=== PATIENT | female | born 1990 | race Caucasian/White ===

== ENCOUNTER 2020-02-27 09:46 | Emergency (ER) | payer BC, OTHER ==
--- OUTSIDE RECORDS SUMMARY | 2020-02-27 09:48 | XMS REPORT | Clinical Summary ---
:1990 Author Organization [facility] Address [address] [place] [address] Care Team Providers Name Role Phone Nam Jensen MD Primary Care Provider Allergies Active Allergy Reactions Severity Noted Date Comments Sulfa (Sulfonamide Antibiotics) Hives 9 Medications Medication Sig Dispensed Refills Start Date End Date Status Take 1 tablet by 0 Act zainab vit,[id number] mouth daily. 29 mg iron- 1 mg tablet per tablet Active Problems Problem Noted Date Abdominal pain during in third trimester 01/2019 Previous section 09/23/2018 29 weeks gestation of 09/23/2018 Social History Tobacco Use Types Packs/Day Years Used Date Former Smoker Smokeless Tobacco: Never Used Alcohol Use Drinks/Week oz/Week Comments Not Currently Sex Assigned at Date Recorded Not on file Obstetrics History Grav Para Term Pre Abrt (TAB) (SAB) (Ect) Mult Lvng Comments 3 2 1 2 Date Outcome GA Total Labor/2nd/3rd Weight Sex Delivery Anes PTL Kena A 1 A5 Name Clin Labor 05/28 Term 39w 10 lb 7 M CS-LTranv Epidu N [place] /2012 0d oz ral ng Complications: Dysfunctional Labor, Sánchez sposition of the great arteries, Aortic anomaly 01/12/2016 Para 38w0d 7 lb F CS-LTranv Spinal N Living Complications: None Last Filed Vital Signs Not on file Plan of Treatment Not on file Results Not on fileafter 02/26/2019 Advance Directives For more information, please contact: [phone] Type Date Recorded 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
--- OUTSIDE RECORDS SUMMARY | 2020-02-27 09:48 | XMS REPORT | Continuity of Care Document ---
:1990 Author Organization [facility] t Address [address] [place] [address] Care Team Providers Name Role Phone Camila STEIN Primary Care Physician Amina STEIN M Attending Clinician Jere CHANGP, R Attending Clinician Doctor Unassigned, Name Attending Clinician Unavailable Warren WHCNP, O Attending Clinician Theodore OSHEA Attending Clinician Unavailable Amina STEIN, M Admitting Clinician Problems Condition Condition Condition Status Onset Resolution Last Treating Co mments Source Name Details Category Date Date Treatment Clinician Date Abdominal Abdominal Disease Active Sharan ston pain pain 8-12 Methodi during during 00:00: st 00 in third in third trimester trimester Previous Previous Disease Active [place] on 8-12 Method i section section 00:00: st 00 29 weeks 29 weeks Disease Active [place] on gestation gestation 8-12 Meth krystal of of 00:00: st 00 Allergies, Adverse Reactions, Alerts Allergy Allergy Status Severity Reaction(s) Onset Inactive Treating Comm ents Source Name Type Date Date Clinician Sulfa Propensi Active Hives [place] (Sulfona ty to 8-11 Methodi mide adverse 00:00: st Antibiot reaction 00 ics) s to drug Social History Social Habit Start Date Stop Date Quantity Comments Source Sex Assigned At [place] M ethodist Tobacco use and 2019-03-02 2019-03-02 Never used Dustin Abdi ethodist exposure 00:00:00 00:00:00 Alcohol intake 2019-03-02 2019-03-02 Ex-drinker Dustin Spaulding thodist 00:00:00 00:00:00 (finding) Smoking Status Start Date Stop Date Source Former smoker 2019-03-02 00:00:00 2019-03-02 00:00:00 Dustin Hindu Medications Ordered Filled Start Stop Current Ordering Indication Dosage Frequency Signature Comments Components Source Medication Medication Date Date Medication? Clinician (SIG) Name Name Yes 1{tbl} QD Take 1 [place] on vit,calc76- 8-12 tablet by Met gil iron-folic 01:23: mouth st 29 mg iron- 52 daily. 1 mg tablet per tablet Procedures This patient has no known procedures. Encounters Start End Encounter Admission Attending Care Care Encounter Source Date/Time Date/Time Type Type Clinicians Facility Department ID 2018-12-04 2018-12-04 1.2.840.1 [id number] 00:00:00 00:00:00 Encounter [id number] 2018-10-28 2018-10-31 [facility] [id number] 17:03:00 11:30:00 Encounter Nhan [facility]13.10 [facility] 4.2.7.2.686 [id number] 2018-10-28 2018-10-28 Telephone Jere [facility] [id number] 00:00:00 00:00:00 Jyotsna Figueredo WATER SUPPLY TECHNICIAN [id number] [facility] 4.2.7.2.686 MATERNAL [id number] & CHILD [address] [place] [address] 2018-10-28 2018-10-28 Orders Doctor SIDRA [id number] 00:00:00 00:00:00 Only Unassigned, VERONICA 350.1.13.10 [place] [facility] 4.2.7.2.686 [id number] 2018-10-23 2018-10-[address] [facility] [id number] 11:23:36 12:13:13 Mellerie O WATER SUPPLY TECHNICIAN [id number] Visit [facility] [id number] MATERNAL [id number] & CHILD [address] [place] [address] 2018-10-23 2018-10-23 Orders Doctor SIDRA [id number] 00:00:00 00:00:00 Only Unassigned, VERONICA [id number] [place] [id number] 2018-09-22 2018-09-22 Nurse Kasey Jaimes [id number] 00:00:00 00:00:00 Triage VERONICA [id number] [place] [id number] Results This patient has no known results.
[2020-02-27] MEDS ORDERED: dexAMETHasone 10 MG/ML VIAL ONE (10:40)
[2020-02-27 11:25] LABS: SARS-COV-2 RT PCR POSITIVE (NEGATIVE)
[2020-02-27] MEDS ORDERED: ACETAMINOPHEN 325 MG TABLET ONE (12:01)
--- NOTE | 2020-02-27 12:21 | RAD REPORT ---
EXAM DESCRIPTION: Ramon Single View02/27/2020 11:23 am CLINICAL HISTORY: Chest pain COMPARISON: 2013 FINDINGS: Lung bases are hazy. Upper lobes are clear. Heart is normal size IMPRESSION: Lung bases are hazy. It is uncertain whether this is secondary to overlying soft tissue or infiltrate. Either PA and lateral chest series or CT chest recommended for further evaluation
--- NOTE | 2020-02-27 13:11 | ER ---
Nurse's Notes [facility] Name: Joyce León Age: 29 yrs Sex: Female : 1990 Arrival Date: 02/27/2020 Time: 09:47 Bed 25 Private MD: Diagnosis: Coronavirus infection, unspecified Presentation: 02/26 10:09 Chief complaint: Patient states: Covid symptoms for 10 days. Boyfriend was diagnosed ll1 positive. Fever up to 100.3 at home. Came in for SOB with exertion. Coronavirus screen: Client denies travel out of the [place] in the last 14 days. chills, congestion, cough unrelated to allergies, difficulty breathing, fatigue, fever, headache, muscle pain, nausea, shaking with chills, shortness of breath, loss of taste or smell, Client presents with at least one sign or symptom that may indicate coronavirus-19. Standard/surgical mask placed on the client. Ebola Screen: Patient denies travel to an Ebola-affected area in the 21 days before illness onset. Initial Sepsis Screen: Does the patient meet any 2 criteria? HR > 90 bpm. No. Patient's initial sepsis screen is negative. Does the patient have a suspected source of infection? Yes: Productive cough/pneumonia. Risk Assessment: Do you want to hurt yourself or someone else? Patient reports no desire to harm self or others. Onset of symptoms was February 18, 2020. 10:09 Method Of Arrival: Ambulatory ll1 10:09 Acuity: WILBER 3 ll1 Historical: - Allergies: 10:09 Sulfa (Sulfonamide Antibiotics); ll1 - PSHx: 10:09 ; tubes tied; ll1 - Immunization history:: Flu vaccine is not up to date. - Social history:: Smoking status: Patient denies any tobacco usage or history of. Screenin:25 Abuse screen: Denies threats or abuse. Nutritional screening: No deficits noted. em Tuberculosis screening: No symptoms or risk factors identified. Fall Risk None identified. Assessment: 10:25 General: Appears in no apparent distress. uncomfortable, Behavior is calm, cooperative, em appropriate for age, Denies fever. Pain: Complains of pain in chest Pain currently is 5 out of 10 on a pain scale. Neuro: Level of Consciousness is awake, alert, obeys commands, Oriented to person, place, time, situation, Appropriate for age. Cardiovascular: Capillary refill Rhythm is regular. Respiratory: Reports shortness of breath on exertion cough that is non-productive, pain with cough Airway is patent Respiratory effort is even, unlabored, Respiratory pattern is regular, symmetrical, Breath sounds are diminished bilaterally. GI: Reports nausea. Derm: Skin is intact, is healthy with good turgor, Skin is pink, warm \T\ dry. Musculoskeletal: Capillary refill < 3 seconds, Range of motion: intact in all extremities. 11:36 Reassessment: Patient appears in no apparent distress at this time. Patient and/or em family updated on plan of care and expected duration. Pain level reassessed. Patient is alert, oriented x 3, equal unlabored respirations, skin warm/dry/pink. 12:20 Reassessment: Patient appears in no apparent distress at this time. Patient and/or em family updated on plan of care and expected duration. Pain level reassessed. Patient is alert, oriented x 3, equal unlabored respirations, skin warm/dry/pink. Vital Signs: 10:09 BP 130 / 76; Pulse 120; Resp 18; Temp 99.1; Pulse Ox 97% on R/A; Weight 130.63 kg; ll1 Height 5 ft. 6 in. (167.64 cm); Pain 5/10; 11:37 BP 118 / 82; Pulse 110; Resp 18; Pulse Ox 96% on R/A; em 12:20 BP 106 / 60; Pulse 85; Resp 18; Pulse Ox 97% on R/A; em 10:09 Body Mass Index 46.48 (130.63 kg, 167.64 cm) ll1 ED Course: 09:47 Patient arrived in ED. rg4 09:48 William Alberto PA is PHCP. [facility] 09:48 Jewel Bruno MD is Attending Physician. jmm 10:08 Arm band placed on Patient placed in an exam room, on a stretcher. ll1 10:12 Triage completed. ll1 10:19 Luis Enrique Floyd, DORIE is Primary Nurse. em 10:25 Patient has correct armband on for positive identification. Bed in low position. Call em light in reach. Adult w/ patient. 11:23 Chest Single View XRAY In Process Unspecified. EDMS 13:20 No provider procedures requiring assistance completed. Patient did not have IV access em during this emergency room visit. Administered Medications: 10:31 Drug: Decadron 10 mg Route: IM; Site: left deltoid; em 11:51 Follow up: Response: No adverse reaction em 11:45 Drug: Tylenol 650 mg Route: PO; em 13:22 Follow up: Response: No adverse reaction em 13:17 Not Given (Physician Discretion): Ivermectin 18 mg PO once em Outcome: 13:10 Discharge ordered by MD. verduzco 13:20 Discharged to home ambulatory. em 13:20 Condition: stable 13:20 Discharge instructions given to patient, Instructed on discharge instructions, follow up and referral plans. medication usage, Demonstrated understanding of instructions, follow-up care, medications, Prescriptions given X 2. 13:22 Patient left the ED. em Signatures: Dispatcher [employer] William Grigsby PA PA jmm Munoz, Edgar RN Kassie Dale rg4 Cj Forman RN RN ll1
--- NOTE | 2020-02-27 13:11 | EDPHYS ---
Physician Documentation [facility] Name: Joyce León Age: 29 yrs Sex: Female : 1990 Arrival Date: 02/27/2020 Time: 09:47 Bed 25 Private MD: ED Physician Jewel Bruno HPI: 02/26 10:33 This 29 yrs old Female presents to ER via Ambulatory with complaints of jmm Cough, Breathing Difficulty, Covid+. 10:33 Onset: The symptoms/episode began/occurred just prior to arrival, 10 day(s) ago. jmm Modifying factors: The symptoms are alleviated by nothing, the symptoms are aggravated by nothing. Associated signs and symptoms: Pertinent positives: fever, sore throat. This is a 29 year old female with no chronic medical conditions that presents to the ED with complaints of cough, dypnea on exertion worsening over the past 10 days. Boyfriend recently diagnosed with covid. . Historical: - Allergies: 10:09 Sulfa (Sulfonamide Antibiotics); ll1 - PSHx: 10:09 ; tubes tied; ll1 - Immunization history:: Flu vaccine is not up to date. - Social history:: Smoking status: Patient denies any tobacco usage or history of. ROS: 10:33 Constitutional: Positive for body aches, fever. jmm 10:33 Respiratory: Positive for cough, shortness of breath. 10:33 All other systems are negative. Exam: 10:33 Constitutional: This is a well developed, well nourished patient who is awake, alert, jmm and in no acute distress. Head/Face: atraumatic. Eyes: EOMI, no conjunctival erythema appreciated ENT: Moist Mucus Membranes Neck: Trachea midline, Supple Chest/axilla: Normal chest wall appearance and motion. Cardiovascular: Regular rate and rhythm. No edema appreciated Respiratory: Normal respirations, no respiratory distress appreciated Abdomen/GI: Non distended, soft Back: Normal ROM Skin: General appearance color normal MS/ Extremity: Moves all extremities, no obvious deformities appreciated, no edema noted to the lower extremities Neuro: Awake and alert, normal gait Psych: Behavior is normal, Mood is normal, Patient is cooperative and pleasant Vital Signs: 10:09 BP 130 / 76; Pulse 120; Resp 18; Temp 99.1; Pulse Ox 97% on R/A; Weight 130.63 kg; ll1 Height 5 ft. 6 in. (167.64 cm); Pain 5/10; 11:37 BP 118 / 82; Pulse 110; Resp 18; Pulse Ox 96% on R/A; em 12:20 BP 106 / 60; Pulse 85; Resp 18; Pulse Ox 97% on R/A; em 10:09 Body Mass Index 46.48 (130.63 kg, 167.64 cm) ll1 MDM: 10:15 [facility] 13[facility]08 Data reviewed: vital signs, nurses notes. Counseling: I had a detailed discussion with ezra the patient and/or guardian regarding: the historical points, exam findings, and any diagnostic results supporting the discharge/admit diagnosis, lab results, radiology results, the need for outpatient follow up, to return to the emergency department if symptoms worsen or persist or if there are any questions or concerns that arise at home. ED course: Patient is alert and non toxic in appearance in the ED. No signs of resp distress. patient advised to follow up with pcp and otherwise given strict return precautions. Patient understood and agrees with the plan of care. . 02/26 10:56 Order name: Chest Single View XRAY; Complete [facility]: 12:33 [facility] 02[facility]26 11:25 Order name: COVID-19/FLU A+B; Complete Time: 11:25 EDMS Administered Medications: 10:31 Drug: Decadron 10 mg Route: IM; Site: left deltoid; em 11:51 Follow up: Response: No adverse reaction em 11:45 Drug: Tylenol 650 mg Route: PO; em 13:22 Follow up: Response: No adverse reaction em 13:17 Not Given (Physician Discretion): Ivermectin 18 mg PO once em Disposition: 02/27 07:44 Co-signature as Attending Physician, Jewel Bruno MD I agree with the assessment and kdr plan of care. Disposition: 02/27/20 13:10 Discharged to Home. Impression: Coronavirus infection, unspecified. - Condition is Stable. - Discharge Instructions: COVID-19. - Prescriptions for ivermectin 3 mg Oral tablet - take 6 tablet by ORAL route as directed Take 6 tabs by mouth today and 6 tabs 48 hours after initial dose; 12 tablet. Albuterol Sulfate 90 mcg/actuation - inhale 1-2 puff by INHALATION route every 4-6 hours; 1 Inhaler. - Medication Reconciliation Form, Thank You Letter, Antibiotic Education, Prescription Opioid Use form. - Follow up: Private Physician; When: 2 - 3 days; Reason: Recheck today's complaints, Continuance of care, Re-evaluation by your physician. Signatures: Dispatcher [employer] [facility] Jewel Bruno MD MD kdr Mickail, Joel, PA PA jmm Munoz, Edgar, RN RN em Cj Forman RN RN ll1 Corrections: (The following items were deleted from the chart) 02/26 10:42 10:16 CORONAVIRUS+MR.LAB.BRZ ordered. [facility] EDDE 10:43 10:16 Influenza Screen (A \T\ B)+BA.LAB.BRZ ordered. [facility] 13:22 13:10 02/27/2020 13:10 Discharged to Home. Impression: Coronavirus infection, em unspecified. Condition is Stable. Forms are Medication Reconciliation Form, Thank You Letter, Antibiotic Education, Prescription Opioid Use. Follow up: Private Physician; When: 2 - 3 days; Reason: Recheck today's complaints, Continuance of care, Re-evaluation by your physician. dxa
[2020-02-27 13:26] VITALS: TEMP 99.1
[2020-02-27 13:29] VITALS: BP 106/60; O2SAT 97
[2020-02-27] MEDS ORDERED: SPECIAL ORDER MED 1 EA UNK PO ONE (14:00)
== END 2020-02-27 13:22 | disposition home or self-care (01) ==
LOC: ER 09:46
DX: U07.1 COVID-19 (principal); Z88.2 Allergy status to sulfonamides
CPT/HCPCS: 0240U; 71045; 96372; 99283; J1100

== ENCOUNTER 2020-03-13 10:29 | Emergency (ER) | payer OTHER ==
--- OUTSIDE RECORDS SUMMARY | 2020-03-13 10:30 | XMS REPORT | Clinical Summary ---
:1990 Author Organization [facility] Address [address] [place] [address] Care Team Providers Name Role Phone Nam Jensen MD Primary Care Provider Allergies Active Allergy Reactions Severity Noted Date Comments Sulfa (Sulfonamide Antibiotics) Hives 9 Medications Medication Sig Dispensed Refills Start Date End Date Status Take 1 tablet by 0 Act zainab vit,[id number]-frhd-gbnyk mouth daily. 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
--- OUTSIDE RECORDS SUMMARY | 2020-03-13 10:31 | XMS REPORT | Continuity of Care Document ---
:1990 Author Organization [facility] t Address [address] [place] [address] Care Team Providers Name Role Phone Camila STEIN Primary Care Physician Amina STEIN, M Attending Clinician Jere SALES AUDIT CLERK, R Attending Clinician Doctor Unassigned, Name Attending [...] Date Date Clinician Sulfa Propensi Active Hives [place] (Sulfona ty to 8-11 Methodi mide adverse 00:00: st Antibiot reaction 00 ics) s to drug Social History Social Habit Start Date Stop Date Quantity Comments Source Sex Assigned At [facility] ethodist Tobacco use and 2019-03-02 2019-03-02 Never used [facility] ethodist exposure 00:00:00 00:00:00 Alcohol intake 2019-03-02 2019-03-02 Ex-drinker Dustin Spaulding thodist 00:00:00 00:00:00 (finding) Smoking Status Start Date Stop Date Source Former smoker 2019-03-02 00:00:00 2019-03-02 00:00:00 Dustin Mormon Medications Ordered Filled Start Stop Current Ordering Indication Dosage Frequency Signature Comments Components Source Medication Medication Date Date Medication? Clinician (SIG) Name Name Yes 1{tbl} QD Take 1 [place] on vit,calc76- 8-12 tablet by Met [place] iron-folic 01:23: mouth st 29 mg iron- 52 daily. 1 mg tablet per tablet Procedures This patient has no known procedures. Encounters Start End Encounter Admission Attending Care Care Encounter Source Date/Time Date/Time Type Type Clinicians Facility Department ID 2018-12-04 2018-12-04 1.2.840.1 [id number] 00:00:00 00:00:00 Encounter [id number] 2018-10-28 2018-10-31 [facility] [id number] 17:03:00 11:30:00 Encounter Nhan MARTIN 350.1.13.10 [facility] [id number] [id number] 2018-10-28 2018-10-28 Telephone Jere [facility] [id number] 00:00:00 00:00:00 Jyotsna Figueredo WOOD PATTERNMAKER APPRENTICE 350.1.13.10 [facility] [id number] MATERNAL [id number] & CHILD [address] [place] [address] 2018-10-28 2018-10-28 Orders Doctor SIDRA [id number] 00:00:00 00:00:00 Only Unassigned, VERONICA 350.1.13.10 [place] [facility] 4.2.7.2.686 [id number] 2018-10-23 2018-10-23 Routine Warren [facility] [id number] 11:23:36 12:13:13 Mellerie O WOOD PATTERNMAKER APPRENTICE 350.1.13.10 Visit [facility] [id number] MATERNAL [id number] & CHILD [address] [place] [address] 2018-10-23 2018-10-23 Orders Doctor SIDRA [id number] 00:00:00 00:00:00 Only Unassigned, VERONICA 350.1.13.10 [place] [address]686 [id number] 2018-09-22 2018-09-22 Nurse Kasey Jaimes [id number] 00:00:00 00:00:00 Triage VERONICA [address].13.[address] [id number] [id number] Results This patient has no known results.
[2020-03-13] MEDS ORDERED: MORPHINE 4 MG/ML SYR ONE (10:53)
--- NOTE | 2020-03-13 11:32 | ER ---
Nurse's Notes [facility] Name: Joyce León Age: 29 yrs Sex: Female : 1990 Arrival Date: 03/13/2020 Time: 10:33 Bed 18 Private MD: Diagnosis: Open fracture midshaft fracture of left ulna and left radius Presentation: 03/13 10:42 Chief complaint: Patient states: Tripped on toy on bottom of steps at home. Fell onto ll1 Left arm. LLE pain, bruising also noted. No LOC. Denies head trauma, no neck pain. Coronavirus screen: Client denies travel out of the [place] in the last 14 days. At this time, the client does not indicate any symptoms associated with coronavirus-19. Ebola Screen: Patient denies travel to an Ebola-affected area in the 21 days before illness onset. Initial Sepsis Screen: Does the patient meet any 2 criteria? No. Patient's initial sepsis screen is negative. Does the patient have a suspected source of infection? Yes: Bone or joint infection. Risk Assessment: Do you want to hurt yourself or someone else? Patient reports no desire to harm self or others. Onset of symptoms was March 13, 2020. 10:42 Method Of Arrival: EMS: [facility] ll1 10:42 Acuity: WILBER 3 ll1 MULTI [place]NS[place]IP ASSESSOR: 10:46 LMP N/A - , tubes tied ll1 Historical: - Allergies: 10:44 Sulfa (Sulfonamide Antibiotics); ll1 - PSHx: 10:44 ; tubes tied; ll1 - Immunization history:: Flu vaccine is not up to date. - Social history:: Smoking status: Patient denies any tobacco usage or history of. Screenin:45 Abuse screen: Denies threats or abuse. Nutritional screening: No deficits noted. ll1 Tuberculosis screening: No symptoms or risk factors identified. Fall Risk IV access (20 points). Ambulatory Aid- Crutches/Cane/Walker (15 pts). Gait- Impaired (20 pts.). Total Jane Fall Scale indicates High Risk Score (45 or more points). Fall prevention measures have been instituted. Side Rails Up X 2 Frequent Obs/Assessments Occuring As available patient and family educated on Fall Prevention Program and Strategies. Assessment: 10:44 General: Appears uncomfortable, Behavior is calm, cooperative, appropriate for age. ll1 Pain: Complains of pain in LUE/LLE Pain currently is 7 out of 10 on a pain scale. Quality of pain is described as aching, Aggravated by increased activity. Neuro: No deficits noted. Cardiovascular: No deficits noted. Respiratory: No deficits noted. Musculoskeletal: Circulation, motion, and sensation intact. Capillary refill < 3 seconds, Swelling present in left leg Tenderness present in LUE/LLE Reports pain in LUE/LLE. Injury Description: Bruise fall. 11:44 Reassessment: Request for transfer to higher level of care per Abdi Jean NP at Dr. Gerber declined patient. Contacted [facility], spoke with Ricardo who stated they are at capacity at this time. 12:35 Reassessment: No changes from previously documented assessment. Patient and/or family ll1 updated on plan of care and expected duration. Pain level reassessed. Patient is alert, oriented x 3, equal unlabored respirations, skin warm/dry/pink. PMS intact post splint application and reduction. Vital Signs: 10:42 BP 125 / 68; Pulse 62; Resp 17; Temp 98.0; Pulse Ox 97% ; Pain 7/10; ll1 12:00 BP 129 / 79; Pulse 68; Resp 18; Pulse Ox 100% on R/A; ll1 12:07 BP 145 / 86; Pulse 86; Resp 19; Pulse Ox 100% ; ll1 12:35 BP 120 / 78; Pulse 94; Resp 18; Pulse Ox 95% on R/A; ll1 12:58 BP 124 / 79; Pulse 95; Resp 17; Pulse Ox 95% on R/A; ll1 ED Course: 10:33 Patient arrived in ED. ss 10:34 Abdi Jean, LEGAL OFFICER is PHCP. pm1 10:42 Cj Forman, DORIE is Primary Nurse. ll1 10:44 Triage completed. ll1 10:44 Arm band placed on Patient placed in an exam room, on a stretcher. ll1 10:46 Patient has correct armband on for positive identification. Bed in low position. Call ll1 light in reach. Side rails up X 1. Pulse ox on. NIBP on. 11:16 Forearm Left XRAY In Process Unspecified. EDMS 11:16 Tib Fib Left XRAY In Process Unspecified. EDMS 11:18 Meg Nicole MD is Attending Physician. pm1 11:36 transfer initiated by Zofia with Noel from the [facility] Transfer [place]. eb 11:53 administrative approval given by Noel Becerra Rn/ patient has been accepted to [facility] ER/ Diane Moon has accepted the patient in transfer without consultation. report to be called to [phone]. 11:55 school lunch monitor on. Pulse ox on. NIBP on. ll1 12:53 Forearm Left XRAY In Process Unspecified. EDMS 12:55 No provider procedures requiring assistance completed. Maintain EMS IV. Dressing ll1 intact. Good blood return noted. Site clean \T\ dry. Gauge \T\ site: 20 R AC. Patient transferred, IV remains in place. Administered Medications: 10:40 Drug: morphine 4 mg Route: IVP; Site: right antecubital; ll1 11:35 Follow up: Response: No adverse reaction; Pain is decreased; RASS: Alert and Calm (0) ll1 11:34 Drug: Ancef 2 grams Route: IVPB; Infused Over: 30 mins; Site: right antecubital; ll1 12:37 Follow up: Response: No adverse reaction; RASS: Alert and Calm (0); IV Status: ll1 Completed infusion; IV Intake: 500ml 12:02 Drug: Ketamine 50 mg Route: IVP; Site: right antecubital; ll1 12:37 Follow up: Response: No adverse reaction; RASS: Alert and Calm (0) ll1 12:03 Drug: Dilaudid 1 mg Route: IVP; Site: right antecubital; ll1 12:37 Follow up: Response: No adverse reaction; RASS: Alert and Calm (0) ll1 12:21 Drug: Zofran (Ondansetron) 4 mg Route: IVP; Site: right antecubital; ll1 12:37 Follow up: Response: No adverse reaction; RASS: Alert and Calm (0) ll1 Intake: 12:37 IV: 500ml; Total: 500ml. ll1 Outcome: 11:31 ER care complete, transfer ordered by . pm1 12:56 Transferred by ground EMS to [facility], Transfer form completed. ll1 12:56 Condition: stable 12:58 Patient left the ED. ll1 Signatures: Dispatcher [employer] EDMS Zofia Davila, RN RN ss Abdi Jean, LEGAL OFFICER LEGAL OFFICER pm1 Adina Reyes Lynsay, RN RN ll1
--- NOTE | 2020-03-13 11:32 | EDPHYS ---
Physician Documentation [facility] Name: Joyce León Age: 29 yrs Sex: Female : 1990 Arrival Date: 03/13/2020 Time: 10:33 Bed 18 Private MD: ED Physician Meg Nicole HPI: 03/13 11:00 This 29 yrs old Female presents to ER via EMS with complaints of left forearm pm1 pain. 11:00 The patient or guardian complains of pain. The complaints affect the left forearm. pm1 Context: The problem was sustained at home, resulted from tripped on toy that was on the stairs. Onset: The symptoms/episode began/occurred just prior to arrival. Treatment prior to arrival includes: C-collar, back board, splint by EMS and fentanyl 150 mcg IV. Modifying factors: The symptoms are alleviated by nothing. the symptoms are aggravated by nothing. Associated signs and symptoms: Pertinent positives: deformity, pain, tingling to left pinky finger. The patient has not experienced similar symptoms in the past. Patient was on the third step from the bottom of her stairs and tripped on a toy. Landed with left arm extended. Presenting with pain to left forearm and left upper souza area. No headache, head injury, LOC, neck pain, back pain. LAB AIDE: 10:46 LMP N/A - , tubes tied ll1 Historical: - Allergies: 10:44 Sulfa (Sulfonamide Antibiotics); ll1 - PSHx: 10:44 ; tubes tied; ll1 - Immunization history:: Flu vaccine is not up to date. - Social history:: Smoking status: Patient denies any tobacco usage or history of. ROS: 11:00 Constitutional: Negative for fever, chills, and weight loss, Neck: Negative for injury, pm1 pain, and swelling, Cardiovascular: Negative for chest pain, palpitations, and edema, Respiratory: Negative for shortness of breath, wheezing, and pleuritic chest pain, Reports occasional cough Abdomen/GI: Negative for abdominal pain, nausea, vomiting, diarrhea, and constipation, Back: Negative for injury and pain. 11:00 MS/extremity: Positive for injury or acute deformity, pain, of the left forearm. 11:00 Skin: Positive for puncture, of the left forearm. 11:00 Neuro: Positive for numbness to left pinky, Negative for headache, loss of consciousness, syncope, near syncope. Exam: 11:00 Constitutional: This is a well developed, well nourished patient who is awake, alert, pm1 and in no acute distress. Head/Face: Normocephalic, atraumatic. 11:00 Chest/axilla: Normal chest wall appearance and motion. Nontender with no deformity. No lesions are appreciated. 11:00 Back: No spinal tenderness. No costovertebral tenderness. Full range of motion. 11:00 Neck: External neck: is normal, no swelling, no tenderness, C-spine: vertebral tenderness, is not appreciated. 11:00 Cardiovascular: Exam negative for acute changes, Rate: normal, Rhythm: regular, Pulses: no pulse deficits are appreciated, Pulses are 2+ in left radial artery. 11:00 Respiratory: Exam negative for acute changes, respiratory distress, shortness of breath. 11:00 Abdomen/GI: Inspection: obese 11:00 Skin: Appearance: normal except for affected area, injury, puncture(s), of the palmar aspect of left forearm, 3 small puncture wounds present largest 0.5 cm . Vital Signs: 10:42 BP 125 / 68; Pulse 62; Resp 17; Temp 98.0; Pulse Ox 97% ; Pain 7/10; ll1 12:00 BP 129 / 79; Pulse 68; Resp 18; Pulse Ox 100% on R/A; ll1 12:07 BP 145 / 86; Pulse 86; Resp 19; Pulse Ox 100% ; ll1 12:35 BP 120 / 78; Pulse 94; Resp 18; Pulse Ox 95% on R/A; ll1 12:58 BP 124 / 79; Pulse 95; Resp 17; Pulse Ox 95% on R/A; ll1 Procedures: 12:33 Reduction: of the left forearm, using traction, Immobilized with Orthoglass sugar tong pm1 splint. Patient tolerated well. Post reduction film - reveals improved alignment. Patient tolerated well with conscious sedation. MDM: 10:34 Patient medically screened. pm1 11:15 Physician consultation: Misbah Gerber MD was called at 11:15, was contacted at 11:15, pm1 regarding consult, patient's condition, after a discussion of the case, a recommendation for transfer for higher level of care is made, Dr. Gerber requests patient to be transferred since he is about to perform surgery on another ER patient here who also has an open fracture and only one set of instruments is available for the surgery . 11:24 Data reviewed: vital signs. Counseling: I had a detailed discussion with the patient pm1 and/or guardian regarding: the historical points, exam findings, and any diagnostic results supporting the discharge/admit diagnosis, the need to transfer to another facility, orthopedic surgeon is unable to perform both surgeries. Also only one set of instruments available in OR. 12:22 ED course: Post reduction patient's numbness tingling to left pinky finger resolved. pm1 Neurovascular status intact to left hand. 12:33 ED course: NPO since 23:30 last night. pm03/13 11:12 Order name: CBC with Diff; Complete Time: 12:49 pm03/13 11:12 Order name: BMP; Complete Time: 12:49 pm03/13 10:35 Order name: Forearm Left XRAY; Complete Time: 12:35 pm03/13 10:35 Order name: Tib Fib Left XRAY; Complete Time: 12:35 pm03/13 11:18 Order name: Splint; Complete Time: 12:38 pm03/13 12:12 Order name: Forearm Left XRAY pm03/13 11:40 Order name: Conscious Sedation; Complete Time: 12:13 pm03/13 11:57 Order name: Labs - recollect needed; Complete Time: 12:21 sv Administered Medications: 10:40 Drug: morphine 4 mg Route: IVP; Site: right antecubital; ll1 11:35 Follow up: Response: No adverse reaction; Pain is decreased; RASS: Alert and Calm (0) ll1 11:34 Drug: Ancef 2 grams Route: IVPB; Infused Over: 30 mins; Site: right antecubital; ll1 12:37 Follow up: Response: No adverse reaction; RASS: Alert and Calm (0); IV Status: ll1 Completed infusion; IV Intake: 500ml 12:02 Drug: Ketamine 50 mg Route: IVP; Site: right antecubital; ll1 12:37 Follow up: Response: No adverse reaction; RASS: Alert and Calm (0) ll1 12:03 Drug: Dilaudid 1 mg Route: IVP; Site: right antecubital; ll1 12:37 Follow up: Response: No adverse reaction; RASS: Alert and Calm (0) ll1 12:21 Drug: Zofran (Ondansetron) 4 mg Route: IVP; Site: right antecubital; ll1 12:37 Follow up: Response: No adverse reaction; RASS: Alert and Calm (0) ll1 Disposition: 13:29 Co-signature as Attending Physician, Meg Nicole MD. ma2 Disposition: 03/13/20 11:[address] [facility]. Diagnosis is Open fracture midshaft fracture of left ulna and left radius. - Reason for transfer: Specialty. - Accepting physician is [facility]. - Condition is Stable. - Problem is new. - Symptoms have improved. Signatures: Dispatcher [employer] EDMA Tyesha Martinez, RN Abdi Crain NP BROADCAST MAINTENANCE TECHNICIAN pm1 Meg Nicole MD MD ma2 Cj Forman RN RN ll1 Corrections: (The following items were deleted from the chart) 12:17 11:00 Constitutional: Negative for fever, chills, and weight loss, Neck: Negative for pm1 injury, pain, and swelling, Cardiovascular: Negative for chest pain, palpitations, and edema, Respiratory: Negative for shortness of breath, cough, wheezing, and pleuritic chest pain, Abdomen/GI: Negative for abdominal pain, nausea, vomiting, diarrhea, and constipation, Back: Negative for injury and pain, pm1 12:53 11:36 CORONAVIRUS+MR.LAB.BRZ ordered. [facility] EDMA 12:58 11:31 03/13/2020 11:[address] [facility]. ll1 Diagnosis is Open fracture midshaft fracture of left ulna and left radius. Reason for transfer: Specialty. Accepting physician is [facility]. Condition is Stable. Problem is new. Symptoms have improved. pm1
[2020-03-13] MEDS ORDERED: NA CHLORIDE 0.9% 1,000 ML ONE (11:45)
[2020-03-13] MEDS ORDERED: HYDROMORPHONE HCL 1 MG/ML INJ ONE (11:45)
[2020-03-13] MEDS ORDERED: CEFAZOLIN/SWI 1gm 2 GM/20 ML SYR ONE (11:46)
[2020-03-13] MEDS ORDERED: KETAMINE HCL 500 MG/5 ML VIAL ONE (12:05)
[2020-03-13] MEDS ORDERED: ONDANSETRON 4 MG/2 ML VIAL ONE (12:33)
--- NOTE | 2020-03-13 12:33 | RAD REPORT ---
EXAM DESCRIPTION: RAD - Tib Fib Left - 03/13/2020 11:16 am CLINICAL HISTORY: Trip and fall, left leg injury COMPARISON: None. FINDINGS: No fracture is identified. There is no dislocation or periosteal reaction noted. No acute or suspicious bony finding. Small plantar spur is present. No foreign body or other soft tissue abnormality. IMPRESSION: Negative left tibia & fibula examination.
[2020-03-13 12:34] LABS: Absolute Lymphocytes (CBC) 1.7 K/uL (0.7-4.9); Basophils % 0.4 % (0-1.3); Hematocrit 42.3 % (36.0-45.0); MPV 8.5 fL (7.6-11.3); RBC Red Blood Cell Count 4.83 M/uL (3.86-4.86)
--- NOTE | 2020-03-13 12:34 | RAD REPORT ---
EXAM DESCRIPTION: RAD - Forearm Left - 03/13/2020 11:16 am CLINICAL HISTORY: PAIN COMPARISON: None. FINDINGS: Both-bone midshaft fractures are present. There is approximately 2 cm of overlap of both f racture sites. Minimal dorsal angulation deformity seen. Elbow and wrist joints are unremarkable. Soft tissue swelling is present with no foreign body. IMPRESSION: Left forearm both-bone fracture as detailed.
[2020-03-13 12:42] LABS: BUN Blood Urea Nitrogen 11 mg/dL (7-18); Bicarbonate 22 mmol/L (21-32); Glucose Level 121 mg/dL (74-106); Sodium Level 139 mmol/L (136-145)
[2020-03-13 13:17] VITALS: TEMP 98
[2020-03-13 13:21] VITALS: O2SAT 95
[2020-03-13 13:22] VITALS: BP 124/79
--- NOTE | 2020-03-13 14:18 | RAD REPORT ---
EXAM DESCRIPTION: RAD - Forearm Left - 03/13/2020 12:50 pm CLINICAL HISTORY: post reduction COMPARISON: Left forearm February 14 FINDINGS: Midshaft both-bone fracture again identified. Alignment and positioning of the radius frac ture have been corrected back anatomic alignment and position. Posterior displacement and minimal ove rlap remain in the radius. IMPRESSION: Partial correction of left forearm both-bone fracture displacement and overlap deformity
== END 2020-03-13 12:58 | disposition short-term general hospital (02) ==
LOC: ER 10:29
PROC: 0PSJXZZ Reposition Left Radius, External Approach (ICD-10-PCS; principal; 2020-03-13)
PROC: 0PSLXZZ Reposition Left Ulna, External Approach (ICD-10-PCS; 2020-03-13)
DX: S52.302A Unspecified fracture of shaft of left radius, initial encounter for closed fracture (principal); S52.202A Unspecified fracture of shaft of left ulna, initial encounter for closed fracture; W10.9XXA Fall (on) (from) unspecified stairs and steps, initial encounter; Z20.822 Contact with and (suspected) exposure to COVID-19
CPT/HCPCS: 96365; 85025; 80048; 36415; 73090 ×2; 73590; 96375; 99285; 25565; U0003; J1170; J0690; J7040; J2405

== ENCOUNTER → 2023-05-12 | Emergency (ER) | payer OTHER | LOC: ER 20:00 | DX: Z02.9 Encounter for administrative examinations, unspecified (principal) ==

== ENCOUNTER 2024-03-08 12:03 | Emergency (ER) | payer OTHER, SELFPAY ==
[2024-03-08] MEDS ORDERED: dexAMETHasone 10 MG/ML VIAL ONE (14:45)
[2024-03-08 15:15] LABS: SARS-CoV-2 Antigen CONTROL BLUE LINE VIS/BG OK; SARS-CoV-2 Antigen Rapid Res Negative (Negative)
--- NOTE | 2024-03-08 15:39 | EDPHYS ---
Physician Documentation [facility] Name: Joyce León Age: 33 yrs Sex: Female : 1990 Arrival Date: 03/08/2024 Time: 12:03 Bed 12 Private MD: ED Physician Stanley Ghosh HPI: 03/08 15:49 This 33 yrs old Female presents to ER via Ambulatory with complaints of Congestion, kb Cough. 15:49 Pt is a 33 year old female who presents for cough, congestion, headache and bilateral kb ear pressure for 6 days. Denies fever, chills, shortness of breath. Historical: - Allergies: 12:38 Sulfa (Sulfonamide Antibiotics); hb - PMHx: 12:38 None; hb - PSHx: 12:38 None; hb - Immunization history:: Adult Immunizations unknown. - Infectious Disease History:: Denies. - Social history:: Smoking status: Patient denies any tobacco usage or history of. ROS: 15:48 Constitutional: As per HPI kb Exam: 15:48 Constitutional: This is a well developed, well nourished patient who is awake, alert, kb and in no acute distress. Head/Face: Normocephalic, atraumatic. ENT: Moist Mucous membranes Cardiovascular: Regular rate Respiratory: Respirations even and unlabored. No increased work of breathing. Talking in full sentences Abdomen/GI: Soft, non-tender. No distention Skin: Warm, dry with normal turgor. Normal color. MS/ Extremity: Pulses equal, no cyanosis. Neurovascular intact. Full, normal range of motion. Neuro: Awake and alert, GCS 15, oriented to person, place, time, and situation. 15:48 ENT: TM's: fluid levels, bilaterally, Vital Signs: 12:34 BP 140 / 96; Pulse 85; Resp 18; Temp 98.1; Pulse Ox 99% ; Weight 104.33 kg; Height 5 hb ft. 6 in. ; 12:34 Body Mass Index 37.12 (104.33 kg, 167.64 cm) hb MDM: 12:13 Medical Screening Exam initiated kb 15:49 Differential Diagnosis: Bronchitis Influenza Upper Respiratory Infection Sinusitis kb Otitis Media. Data reviewed: vital signs, nurses notes. I considered the following discharge prescriptions or medication management in the emergency department I discussed and recommended Over The Counter medications, Antibiotics: At this time antibiotics are not recommended, Antivirals: At this time, antivirals are not recommended. Counseling: I had a detailed discussion with the patient and/or guardian regarding the historical points, exam findings, and any diagnostic results supporting the discharge/admit diagnosis, lab results, the need for outpatient follow up, a family practitioner, to return to the emergency department if symptoms worsen or persist or if there are any questions or concerns that arise at home. 03/08 12:39 Order name: Flu; Complete Time: 15:22 kb 03/08 12:39 Order name: SARS-COV-2 Antigen Rapid; Complete Time: 15:16 kb 03/08 12:39 Order name: Strep kb 03/08 15:18 Order name: Throat Culture EDMS Administered Medications: 14:53 Drug: Dexamethasone IM 10 mg IM once Route: IM; Site: left deltoid; hb 15:30 Follow up: Response: No adverse reaction hb Disposition: 18:00 Co-signature as Attending Physician, Stanley Ghosh MD I reviewed the patient's care rt provided by the Advanced Practice Provider and agree with the diagnosis and treatment plan. Disposition Summary: 03/08/24 15:39 Discharge Ordered Notes: Location: Home kb Condition: Stable kb Diagnosis - Acute upper respiratory infection, unspecified kb Followup: kb - With: Emergency Department - When: As needed - Reason: Worsening of condition Followup: kb - With: Private Physician - When: 2 - 3 days - Reason: Recheck today's complaints, Continuance of care, Re-evaluation by your physician Discharge Instructions: - Discharge Summary Sheet kb - Upper Respiratory Infection, Adult, [id number] kb - Viral Respiratory Infection, [id number] kb Forms: - Work release form kb - Medication Reconciliation Form kb - Antibiotic Education kb - Prescription Opioid Use kb - Patient Portal Instructions kb - Leadership Thank You Letter kb Prescriptions: - Tessalon Perles 100 mg Oral Capsule - take 1 capsule ORAL route every 8 hours As needed; 15 capsule; Refills: 0, kb Product Selection Permitted Signatures: Dispatcher [employer] Erin Estrada FNP-C FNP-Ckb Baxter, Heather, RN RN Stanley Erwin MD MD rt
--- NOTE | 2024-03-08 15:39 | ER ---
Nurse's Notes [facility] Name: Joyce León Age: 33 yrs Sex: Female : 1990 Arrival Date: 03/08/2024 Time: 12:03 Bed 12 Private MD: Diagnosis: Acute upper respiratory infection, unspecified Presentation: 03/08 12:34 Chief complaint: Patient states: hacking cough with green mucous, head pressure, hb pressure in both ears for 6 days. Coronavirus screen: congestion, cough unrelated to allergies, headache, sore throat. Ebola Screen: No symptoms or risks identified at this time. Initial Sepsis Screen: Does the patient meet any 2 criteria? No. Patient's initial sepsis screen is negative. Does the patient have a suspected source of infection? No. Patient's initial sepsis screen is negative. Risk Assessment: Do you want to hurt yourself or someone else? Patient reports no desire to harm self or others. Onset of symptoms is unknown. 12:34 Method Of Arrival: Ambulatory hb 12:34 Acuity: WILBER 4 hb Triage Assessment: 12:38 General: Appears in no apparent distress. Behavior is calm, cooperative, appropriate hb for age. Pain: Complains of pain in forehead, right ear and left ear. Respiratory: Breath sounds are clear bilaterally. Historical: - Allergies: 12:38 Sulfa (Sulfonamide Antibiotics); hb - PMHx: 12:38 None; hb - PSHx: 12:38 None; hb - Immunization history:: Adult Immunizations unknown. - Infectious Disease History:: Denies. - Social history:: Smoking status: Patient denies any tobacco usage or history of. Screenin:52 [facility] ED Fall Risk Assessment (Adult) History of falling in the last 3 months, hb including since admission No falls in past 3 months (0 pts) Confusion or Disorientation No (0 pts) Intoxicated or Sedated No (0 pts) Impaired Gait No (0 pts) Mobility Assist Device Used No (0 pt) Altered Elimination No (0 pt) Score/Fall Risk Level 0 - 2 = Low Risk Oriented to surroundings, Maintained a safe environment, Educated pt \T\ family on fall prevention, incl call for assistance when getting out of bed. Abuse screen: Denies threats or abuse. Denies injuries from another. Nutritional screening: No deficits noted. Tuberculosis screening: No symptoms or risk factors identified. Assessment: 14:51 General: Appears in no apparent distress. Behavior is calm, cooperative. Neuro: Level hb of Consciousness is awake, alert, obeys commands, Oriented to person, place, time, situation. Cardiovascular: Patient's skin is warm and dry. Respiratory: Reports cough that is Airway is patent Respiratory effort is even, unlabored, Respiratory pattern is regular, symmetrical. 15:48 Reassessment: Patient appears in no apparent distress at this time. Patient and/or hb family updated on plan of care and expected duration. Pain level reassessed. Patient is alert, oriented x 3, equal unlabored respirations, skin warm/dry/pink. Vital Signs: 12:34 BP 140 / 96; Pulse 85; Resp 18; Temp 98.1; Pulse Ox 99% ; Weight 104.33 kg; Height 5 hb ft. 6 in. ; 12:34 Body Mass Index 37.12 (104.33 kg, 167.64 cm) hb ED Course: 12:05 Patient arrived in ED. im 12:13 Erin Kirk FNP-C is PHCP. kb 12:13 Stanley Ghosh MD is Attending Physician. kb 12:38 Triage completed. hb 12:38 Arm band placed on right wrist. Patient placed in waiting room, Patient notified of hb wait time. 14:40 Elizabeth Hammond, RN is Primary Nurse. hb 14:52 Patient has correct armband on for positive identification. Provided Education on: hb tests, result times. 14:52 No provider procedures requiring assistance completed. Patient did not have IV access hb during this emergency room visit. 14:52 COVID swab sent to lab. Flu and/or RSV swab sent to lab. Strep swab sent to lab. hb 14:52 Strep Sent. hb 14:52 SARS-COV-2 Antigen Rapid Sent. hb 14:53 Flu Sent. hb Administered Medications: 14:53 Drug: Dexamethasone IM 10 mg IM once Route: IM; Site: left deltoid; hb 15:30 Follow up: Response: No adverse reaction hb Medication: 14:52 VIS not applicable for this client. hb Outcome: 15:39 Discharge ordered by . kb 15:48 Discharged to home ambulatory, hb 15:48 Condition: stable 15:48 Discharge instructions given to patient, Instructed on discharge instructions, follow up and referral plans. medication usage, Demonstrated understanding of instructions, follow-up care, medications, Prescriptions given X 1, 15:49 Patient left the ED. hb Signatures: Erin Kirk FNP-C FNP-Elizabeth Barton, RN RN Paula Garduno
[2024-03-08 17:52] VITALS: BP 140/96; TEMP 98.1; O2SAT 99
== END 2024-03-08 15:49 | disposition home or self-care (01) ==
LOC: ER 12:03
DX: J06.9 Acute upper respiratory infection, unspecified (principal); Z11.52 Encounter for screening for COVID-19
CPT/HCPCS: 36415; 87070; 87081; 87804; 87811; 96372; 99284; J1100